=== PATIENT | male | born 1975 | race Caucasian/White ===

== ENCOUNTER 2016-08-18 20:52 | Observation (INO) | payer MEDICAID, OTHER ==
[2016-08-18 22:14] VITALS: BP 118/75; PULSE 120; RESP 17; TEMP 97.7; O2SAT 95
--- NOTE | 2016-08-18 23:21 | ED PDOC ---
HPI: Psych/Substance Abuse Time Seen by Provider: 08/18/16 23:10 Chief Complaint (Nursing): Alcohol Ingestion Chief Complaint (Provider): intoxicated ED Caveat: Intoxicated Additional Complaint(s): 40yo M was picked up by EMS from [facility]-pt is homless admits to heavy drinking. denies CP, SOB, dizziness. pt req. detox. Past Medical History Reviewed: Historical Data, Nursing Documentation, Vital Signs Vital Signs: Last Vital Signs Temp 97.7 F 08/18/16 22:10 Pulse 120 H 08/18/16 22:10 Resp 17 08/18/16 22:10 BP 118/75 08/18/16 22:10 Pulse Ox 95 08/18/16 22:10 - Family History Family History: States: Unknown Family Hx - Immunization History Hx Influenza Vaccination: No Hx Pneumococcal Vaccination: No - Home Medications Home Medications: Ambulatory Orders Medication Instructions Recorded No Known Home Med 01/08/16 - Allergies Allergies/Adverse Reactions: Allergies Allergy/AdvReac Type Severity Reaction Status Date / Time No Known Allergies Allergy Verified 08/18/16 22:14 Review of Systems ROS Statement: Except As Marked, All Systems Reviewed And Found Negative Constitutional: Negative for: Fever, Chills Physical Exam - Reviewed Nursing Documentation Reviewed: Yes Vital Signs Reviewed: Yes - Physical Exam Appears: Positive for: No Acute Distress. Negative for: Non-toxic (intoxicated) Head Exam: Positive for: ATRAUMATIC, NORMAL INSPECTION, NORMOCEPHALIC Skin: Positive for: Normal Color, Warm, DRY Eye Exam: Positive for: EOMI, Normal appearance, PERRL Cardiovascular/Chest: Positive for: Regular Rate, Rhythm Respiratory: Positive for: CNT, Normal Breath Sounds Neurologic/Psych: Positive for: Alert, Oriented, Other ((+) AOB, unstable gait, slurred speech. ) - ECG O2 Sat by Pulse Oximetry: 95 - Progress ED Course And Treament: pt made aware there is no detox at the facility. BAL drawn ED OBSERVATION Date of observation admission: 08/19/16 Time of observation admission: 00:00 - Observation admission statement Patient is being placed in observation because:: intoxication - Goals of Observation Goals of observation are:: sobriety Disposition - Clinical Impression Clinical Impression: Alcohol abuse with intoxication - Patient ED Disposition Is Patient to be Admitted: Transfer of Care - Disposition Disposition Time: 00:02 Condition: STABLE Patient Signed Over To: Hui Wade Handoff Comments: sobriety pending
--- NOTE | 2016-08-19 04:47 | ED PDOC ---
- ECG O2 Sat by Pulse Oximetry: 95 Medical Decision Making Medical Decision Making: Pt endorsed to creative services writer pending sobriety. 05:30 - Clear speech and steady gait. Disposition - Clinical Impression Clinical Impression: Alcohol abuse with intoxication - POA Present On Arrival: None - Disposition Disposition: Routine/Home Disposition Time: 05:30 Condition: STABLE
== END 2016-08-19 05:18 | disposition home or self-care (01) ==
LOC: H.ER 20:52 → H.EROBSV 08-19 00:01
PROVIDERS: ADMIT Emergency Medicine; ATTEND Emergency Medicine
DX: F10.129 Alcohol abuse with intoxication, unspecified (principal); Y90.8 Blood alcohol level of 240 mg/100 ml or more

== ENCOUNTER 2017-02-17 21:29 | Emergency (ER) | payer MEDICAID ==
[2017-02-17 21:39] VITALS: PULSE 79; RESP 18; TEMP 97.8; O2SAT 96
--- NOTE | 2017-02-17 22:18 | ED PDOC ---
HPI: Psych/Substance Abuse Time Seen by Provider: 02/17/17 21:37 Chief Complaint (Nursing): Alcohol Ingestion Chief Complaint (Provider): ETOH History Per: Patient Additional Complaint(s): Brought by [facility] for possible intoxication. Patient admits to drinking beer. Gait is steady.Pt asking to sleep in ED Past Medical History Reviewed: Nursing Documentation, Vital Signs Vital Signs: Last Vital Signs Temp 97.8 F 02/17/17 21:31 Pulse 79 02/17/17 21:31 Resp 18 02/17/17 21:31 BP Pulse Ox 96 02/17/17 21:31 - Medical History PMH: No Chronic Diseases - Surgical History Surgical History: No Surg Hx - Family History Family History: States: Unknown Family Hx - Living Arrangements Living Arrangements: Other - Social History Current smoker - smoking cessation education provided: No Alcohol: > 2 Drinks/Day - Immunization History Hx Influenza Vaccination: No Hx Pneumococcal Vaccination: No - Home Medications Home Medications: Ambulatory Orders Medication Instructions Recorded No Known Home Med 01/08/16 - Allergies Allergies/Adverse Reactions: Allergies Allergy/AdvReac Type Severity Reaction Status Date / Time No Known Allergies Allergy Verified 08/18/16 22:14 Review of Systems ROS Statement: Except As Marked, All Systems Reviewed And Found Negative Physical Exam - Reviewed Nursing Documentation Reviewed: Yes Vital Signs Reviewed: Yes - Physical Exam Appears: Positive for: Well, Non-toxic, No Acute Distress Head Exam: Positive for: ATRAUMATIC, NORMAL INSPECTION, NORMOCEPHALIC Skin: Positive for: Normal Color, Warm, DRY Eye Exam: Positive for: EOMI, Normal appearance, PERRL ENT: Positive for: Normal ENT Inspection Neck: Positive for: Normal, Painless ROM Cardiovascular/Chest: Positive for: Regular Rate, Rhythm Respiratory: Positive for: CNT, Normal Breath Sounds Gastrointestinal/Abdominal: Positive for: Normal Exam, Bowel Sounds, Soft Back: Positive for: Normal Inspection Extremity: Positive for: Normal ROM Neurologic/Psych: Positive for: Alert, Oriented - ECG O2 Sat by Pulse Oximetry: 96 Disposition - Clinical Impression Clinical Impression: Alcohol ingestion - Patient ED Disposition Is Patient to be Admitted: No - Disposition Disposition: Routine/Home Disposition Time: 23:28 Condition: STABLE Instructions: Alcohol Intoxication (ED) Forms: [employer] ([place])
== END 2017-02-17 23:45 | disposition home or self-care (01) ==
LOC: H.ER 21:29
DX: F10.129 Alcohol abuse with intoxication, unspecified (principal)